=== PATIENT | female | born 1940 | race Caucasian/White ===

== ENCOUNTER → 2016-08-30 | Outpatient (CLI) | payer MEDICARE ==
[2016-07-25 19:00] VITALS: BP 141/59
[~2016-08-30] MED LIST: AMLO5TAB2 PO; ATOR20TA58 PO; BIMA2.5D EACHEYE; GABA600T2 PO; HYDR-2666 PO; HYDR12.58 PO; LISI-334 PO; LISI40TA PO; MAGN400T3 PO; MELO-150 PO; METF10002 PO; METO25TA4 PO; OMEP20CA9 PO; OXYB5TAB7 PO; POLY500P14 MC; SILV25CR4 TP; TRAM50TA PO
--- NOTE | 2016-08-30 15:22 | RAD ---
Right knee radiographs History: Right knee pain. Comparison: None. Findings: AP, lateral, and oblique views of the right knee. No acute fracture or dislocation is identified. No joint effusion is seen. Moderate-severe medial compartment degeneration is noted with partial loss of joint space, articular irregularity, and marginal osteophyte formation. Mild lateral compartment degeneration is seen with marginal osteophyte formation and preservation of joint space. Moderate patellofemoral compartment degeneration is seen marginal osteophyte formation. Small quadriceps tendon insertional enthesophyte is seen. Impression: 1. No acute osseous traumatic injury identified. 2. Degeneration.
--- NOTE | 2016-08-30 16:48 | RAD ---
Right lower extremity venous Doppler ultrasound History: Calf tenderness. Comparison: None. Procedure: Color Doppler, spectral Doppler, and grayscale images are obtained with and without compression in the area of the common femoral vein, superficial femoral vein - femoral vein junction, main femoral vein (superficial femoral vein) and popliteal vein. Veins of the proximal calf are also imaged. Findings: There is normal duplex flow, color flow and compressibility of all visualized vein segments. No evidence of deep venous thrombosis is present. Impression: No evidence of right lower extremity deep venous thrombosis.
== END | disposition home or self-care (01) ==
LOC: RAD 14:44
PROVIDERS: ATTEND Internal Medicine
DX: M25.561 Pain in right knee (principal); M79.604 Pain in right leg
CPT/HCPCS: 73562; 93971

== ENCOUNTER 2017-01-01 07:47 | Emergency (ER) | payer MEDICARE ==
[~2017-01-01] VITALS: Ht 157.5 cm; Wt 78.9 kg
[~2017-01-01 07:47] MED LIST changes: +METF-620 PO; -METF10002 PO
[2017-01-01 08:13] LABS: BASO # 0.1 x10^3/uL (0.0-0.2); BASO % 1 % (0-3); EOS % 2 % (0-3); HEMATOCRIT 36.9 % (36.0-47.0); HEMOGLOBIN 12.1 g/dL (12.0-15.5); LYMPH # 2.9 x10^3/uL (1.0-4.8); LYMPH % 25 % (24-48); MEAN CORPUSCULAR HEMOGLOBIN 29 pg (25-35); MEAN CORPUSCULAR HGB CONC 33 g/dL (31-37); MEAN CORPUSCULAR VOLUME 88 fL (79-100); MONO % 8 % (0-9); NEUT % 64 % (31-73); PLATELET COUNT 294 x10^3/uL (140-400); RED BLOOD COUNT 4.19 x10^6/uL (3.50-5.40); RED CELL DISTRIBUTION WIDTH 14.9 % (11.5-14.5); WHITE BLOOD COUNT 11.6 x10^3/uL (4.0-11.0)
[2017-01-01 08:19] LABS: CALCIUM 9.3 mg/dL (8.5-10.1); CREATININE 1.1 mg/dL (0.6-1.0); GFR 48.2; POTASSIUM 3.9 mmol/L (3.5-5.1)
[2017-01-01 08:21] LABS: INR 1.1 (0.8-1.1); PROTHROMBIN TIME PATIENT 13.4 SEC (11.7-14.0)
[2017-01-01 08:28] LABS: BILIRUBIN,URINE NEGATIVE (NEG); GLUCOSE,URINE NEGATIVE (NEG); NITRITE,URINE NEGATIVE (NEG); PH,URINE 5.5; PROTEIN,URINE NEGATIVE (NEG-TRACE); UROBILINOGEN,URINE 0.2 mg/dL (0.2 mg/dL)
[2017-01-01 08:30] LABS: ALBUMIN 3.7 g/dL (3.4-5.0); MAGNESIUM 1.3 mg/dL (1.8-2.4); TOTAL BILIRUBIN 0.7 mg/dL (0.2-1.0); TOTAL PROTEIN 7.5 g/dL (6.4-8.2)
--- NOTE | 2017-01-01 08:30 | RAD ---
Portable chest, 01/01/2017: History: Shortness of breath, fever Comparison is made to a study from 07/25/2016. The heart is at the upper limits of normal in size. There is calcific plaquing aorta. The pulmonary vascularity is normal. There is minimal parenchymal scarring. No acute infiltrates are seen. There is no evidence of pleural fluid. Surgical clips are projected over the right lower chest. A couple of tiny radiopaque foreign bodies projected over left upper chest are unchanged. Degenerative changes are evident in the spine. IMPRESSION: No acute cardiopulmonary abnormality is detected.
[2017-01-01 08:37] LABS: BACTERIA,URINE MANY /HPF (0-FEW); RBC,URINE FOBS /HPF (0-2); WBC,URINE TNTC /HPF (0-4)
[2017-01-01] MEDS ORDERED: fentaNYL PF VIAL 100 MCG/2 ML VIAL IV ONE (09:00)
[2017-01-01] MEDS ORDERED: IV NORMAL SALINE 1000ML BAG 1,000 ML IV ONE (09:00)
--- NOTE | 2017-01-01 09:34 | PHYS DOC ---
Past Medical History Past Medical History: Cancer, Diabetes-Type II, Hypertension, Other Additional Past Medical Histor: BREAST CANCER, URINARY URGENCY Past Surgical History: Hysterectomy, Other Additional Past Surgical Histo: RIGHT BREAST LUMPECTOMY Alcohol Use: None Drug Use: None Adult General Chief Complaint Chief Complaint: ABDOMINAL PAIN HPI HPI Patient is a 76 year old female who presents with lower abdominal pain, dysuria , and 1 episode of nausea and vomiting. Pt hasn't been feeling well for a couple of days. No known fevers, no change in bowels. pt reports last time she felt like this she had a kidney infection. Pt sees Dr. Vu. Review of Systems Review of Systems Constitutional: Denies fever or chills [] Eyes: Denies change in visual acuity, redness, or eye pain [] HENT: Denies nasal congestion or sore throat [] Respiratory: Denies cough Cardiovascular: No additional information not addressed in HPI [] GI: per hpi : per hpi Musculoskeletal: Denies back pain or joint pain [] Integument: Denies rash or skin lesions [] Neurologic: Denies headache, focal weakness or sensory changes [] Endocrine: Denies polyuria or polydipsia [] Current Medications Current Medications Current Medications Medications (Trade) Dose Ordered Sig/Maryam Start Time Stop Time Status Last Admin Dose Admin Ceftriaxone Sodium 50 ml @ 100 mls/hr 1X ONCE 01/01/17 09:00 01/01/17 09:29 DC 01/01/17 09:16 100 MLS/HR Fentanyl Citrate (Fentanyl 2ml Vial) 50 mcg 1X ONCE 01/01/17 09:00 01/01/17 09:01 DC 01/01/17 09:17 50 MCG Sodium Chloride 1,000 ml @ 1,000 mls/hr 1X ONCE 01/01/17 09:00 01/01/17 09:59 01/01/17 09:17 1,000 MLS/HR Allergies Allergies Allergies Coded Allergies Type Severity Reaction Last Updated Verified No Known Drug Allergies 09/10/13 No Physical Exam Physical Exam Constitutional: Well developed, well nourished, no acute distress, non-toxic appearance. [] HENT: Normocephalic, atraumatic, bilateral external ears normal, oropharynx moist, no oral exudates, nose normal. [] Eyes: PERRLA, EOMI, conjunctiva normal, no discharge. [] Neck: Normal range of motion, no tenderness, supple, no stridor. [] Cardiovascular:Heart rate tachy with regular rhythm, no murmur [] Lungs & Thorax: Bilateral breath sounds clear to auscultation , no wheeze or crackles Abdomen: Bowel sounds normal, soft, nondistended, Skin: Warm, dry, no erythema, no rash. [] Back: No tenderness, no CVA tenderness. [] Extremities: No tenderness, no cyanosis, no clubbing, ROM intact, no edema. [] Neurologic: Alert and oriented X 3, normal motor function, normal sensory function, no focal deficits noted. [] Psychologic: Affect normal, judgement normal, mood normal. [] Current Patient Data Vital Signs Vital Signs Date Time Temp Pulse Resp B/P (MAP) Pulse Ox O2 Delivery O2 Flow Rate FiO2 01/01/17 09:17 15 97 Room Air 01/01/17 07:56 98.2 133 163/72 (102) 98.2 Lab Values Laboratory Tests Test 01/01/17 07:55 01/01/17 08:05 01/01/17 08:15 White Blood Count 11.6 x10^3/uL (4.0-11.0) H Red Blood Count 4.19 x10^6/uL (3.50-5.40) Hemoglobin 12.1 g/dL (12.0-15.5) Hematocrit 36.9 % (36.0-47.0) Mean Corpuscular Volume 88 fL (79-100) Mean Corpuscular Hemoglobin 29 pg (25-35) Mean Corpuscular Hemoglobin Concent 33 g/dL (31-37) Red Cell Distribution Width 14.9 % (11.5-14.5) H Platelet Count 294 x10^3/uL (140-400) Neutrophils (%) (Auto) 64 % (31-73) Lymphocytes (%) (Auto) 25 % (24-48) Monocytes (%) (Auto) 8 % (0-9) Eosinophils (%) (Auto) 2 % (0-3) Basophils (%) (Auto) 1 % (0-3) Neutrophils # (Auto) 7.4 x10^3uL (1.8-7.7) Lymphocytes # (Auto) 2.9 x10^3/uL (1.0-4.8) Monocytes # (Auto) 0.9 x10^3/uL (0.0-1.1) Eosinophils # (Auto) 0.2 x10^3/uL (0.0-0.7) Basophils # (Auto) 0.1 x10^3/uL (0.0-0.2) Prothrombin Time 13.4 SEC (11.7-14.0) Prothrombin Time INR 1.1 (0.8-1.1) Sodium Level 142 mmol/L (136-145) Potassium Level 3.9 mmol/L (3.5-5.1) Chloride Level 103 mmol/L (98-107) Carbon Dioxide Level 23 mmol/L (21-32) Anion Gap 16 (6-14) H Blood Urea Nitrogen 14 mg/dL (7-20) Creatinine 1.1 mg/dL (0.6-1.0) H Estimated GFR (Cockcroft-Gault) 48.2 BUN/Creatinine Ratio 13 (6-20) Glucose Level 147 mg/dL (70-99) H Calcium Level 9.3 mg/dL (8.5-10.1) Magnesium Level 1.3 mg/dL (1.8-2.4) L Total Bilirubin 0.7 mg/dL (0.2-1.0) Aspartate Amino Transferase (AST) 16 U/L (15-37) Alanine Aminotransferase (ALT) 16 U/L (14-59) Alkaline Phosphatase 73 U/L (46-116) Troponin I Quantitative < 0.017 ng/mL (0.000-0.055) YV-Azl-E-Type Natriuretic Peptide 254 pg/mL (0-449) Total Protein 7.5 g/dL (6.4-8.2) Albumin 3.7 g/dL (3.4-5.0) Albumin/Globulin Ratio 1.0 (1.0-1.7) Lactic Acid Level 1.3 mmol/L (0.4-2.0) Urine Collection Type U cath Urine Color Yellow Urine Clarity Cloudy Urine pH 5.5 Urine Specific [place] 1.010 Urine Protein Negative mg/dL (NEG-TRACE) Urine Glucose (UA) Negative mg/dL (NEG) Urine Ketones (Stick) 15 mg/dL (NEG) Urine Blood Moderate (NEG) Urine Nitrite Negative (NEG) Urine Bilirubin Negative (NEG) Urine Urobilinogen Dipstick 0.2 mg/dL (0.2 mg/dL) Urine Leukocyte Esterase Large (NEG) Urine RBC Fobs /HPF (0-2) Urine WBC Tntc /HPF (0-4) Urine Bacteria Many /HPF (0-FEW) Laboratory Tests 01/01/17 07:55 Laboratory Tests 01/01/17 07:55 EKG EKG [] Radiology/Procedures Radiology/Procedures [] Course & Med Decision Making Course & Med Decision Making Pertinent Labs and Imaging studies reviewed. (See chart for details) given IV fluids and pain medication. Symptoms appear well-controlled, heart rate improved to 90. She does have a significant urinary tract infection, no clear signs of sepsis. I spoke with patient's PCP, after Horace, he agrees patient can be discharged home and follow up closely with him in clinic on Friday. Patient received 1 g IV Rocephin here in the ED, discharged with Levaquin 250 mg daily for [address] Vu's request. Zofran ODT also given. Return precautions given and patient voice understanding. Dragon Disclaimer Dragon Disclaimer This electronic medical record was generated, in whole or in part, using a voice recognition dictation system. Departure Departure Impression: Primary Impression: UTI (urinary tract infection) Disposition: 01 HOME, SELF-CARE Condition: IMPROVED Referrals: BEN VU MD (PCP) Scripts Levofloxacin (LEVOFLOXACIN) 500 Mg Tablet 1 TAB PO DAILY, #7 TAB Prov: RAVINDER CALLEJAS MD 01/01/17 Ondansetron (ZOFRAN ODT) 4 Mg Tab.rapdis 1 TAB SL Q8HRS Y for NAUSEA, #10 TAB Prov: RAVINDER CALLEJAS MD 01/01/17 RAVINDER CALLEJAS MD January 01, 2017 09:34
[2017-01-01] MEDS ORDERED: LEVO500T8 PO (09:43)
[2017-01-01] MEDS ORDERED: ONDA4TAB10 SL (09:43)
[2017-01-01 09:53] VITALS: BP 160/73
--- NOTE | 2017-01-01 15:13 | EKG ---
[facility] [address] [place] [address] Test Date: 2017-01-01 Test Time: 08:06:39 Pat Name: DARIO GUZMAN Department: Room: Gender: F Side Gluer: : 1940 Requested By: RAVINDER CALLEJAS Order Number: [id number] Reading MD: Sanjeev Tracy Measurements Intervals [place] Rate: 111 P: 180 [place]: 160 QRS: -6 QRSD: 82 T: 18 QT: 372 QTc: 510 Interpretive Statements SINUS RHYTHM NON-SPECIFIC ST/T CHANGES CANNOT RULE OUT INFERIOR INFARCT Electronically Signed On 01-06-2017 13:59:30 CDT by Sanjeev Tracy
== END 2017-01-01 10:13 | disposition home or self-care (01) ==
LOC: ER 07:47
DX: N39.0 Urinary tract infection, site not specified (principal); I10 Essential (primary) hypertension; E11.9 Type 2 diabetes mellitus without complications; Z90.710 Acquired absence of both cervix and uterus
CPT/HCPCS: 36415; 71010; 80053; 81001; 83605; 83735; 83880; 84484; 85027; 85610; 87086; 87186; 93005; 96365; 96375; 99285; J0690; J3010; J7030

== ENCOUNTER 2017-07-22 11:17 | Emergency (ER) | payer BC, MEDICARE ==
[~2017-07-22] VITALS: Ht 154.9 cm; Wt 78.9 kg
[~2017-07-22 11:17] MED LIST changes: -HYDR-2666 PO; +HYDR-2758 PO; +LEVO500T8 PO; -MELO-150 PO; +MELO15TA23 PO; +ONDA4TAB10 SL; -SILV25CR4 TP; +SILV25CR7 TP
[2017-07-22 11:20] VITALS: BP 166/71
--- NOTE | 2017-07-22 12:15 | PHYS DOC ---
Past Medical History Past Medical History: Cancer, Diabetes-Type II, Hypertension, Other Additional Past Medical Histor: BREAST CANCER, URINARY URGENCY Past Surgical History: Hysterectomy, Other Additional Past Surgical Histo: RIGHT BREAST LUMPECTOMY Alcohol Use: None Drug Use: None Adult General Chief Complaint Chief Complaint: COUGH HPI HPI Patient is a 76 year old female with a history of diabetes presents the ED complaining of cough 1.5 weeks. Patient states the cough is dry. States she is having trouble sleeping tonight because she has a cough. Associated symptoms include rhinorrhea and sore throat. States she has been using otc treatments with some improvement. Sick contacts at home with similar symptoms. Denies chest pain, shortness of breath, dizziness, weakness, nausea/vomiting, abdominal pain, syncope, lower leg swelling or headache. Review of Systems Review of Systems Constitutional: Denies fever or chills [] Eyes: Denies change in visual acuity, redness, or eye pain [] HENT: Complains of rhinorrhea and sore throat [] Respiratory: Complains of cough. Denies shortness of breath [] Cardiovascular: No additional information not addressed in HPI [] GI: Denies abdominal pain, nausea, vomiting, bloody stools or diarrhea [] : Denies dysuria or hematuria [] Musculoskeletal: Denies back pain or joint pain [] Integument: Denies rash or skin lesions [] Neurologic: Denies headache, focal weakness or sensory changes [] Endocrine: Denies polyuria or polydipsia [] All other systems were reviewed and found to be within normal limits, except as documented in this note. Allergies Allergies Allergies Coded Allergies Type Severity Reaction Last Updated Verified No Known Drug Allergies 09/10/13 No Physical Exam Physical Exam Constitutional: Well developed, well nourished, no acute distress, non-toxic appearance. [] HENT: Normocephalic, atraumatic, bilateral external ears normal, oropharynx moist, MILD PHARYNGEAL ERYTHEMA. no oral exudates, nose normal. [] Eyes: PERRLA, EOMI, conjunctiva normal, no discharge. [] Neck: Normal range of motion, no tenderness, supple, no stridor. [] Cardiovascular:Heart rate regular rhythm, no murmur [] Lungs & Thorax: Bilateral breath sounds clear to auscultation [] Abdomen: Bowel sounds normal, soft, no tenderness, no masses, no pulsatile masses. [] Skin: Warm, dry, no erythema, no rash. [] Back: No tenderness, no CVA tenderness. [] Extremities: No tenderness, no cyanosis, no clubbing, ROM intact, no edema. [] Neurologic: Alert and oriented X 3, normal motor function, normal sensory function, no focal deficits noted. [] Psychologic: Affect normal, judgement normal, mood normal. [] Current Patient Data Vital Signs Vital Signs Date Time Temp Pulse Resp B/P (MAP) Pulse Ox O2 Delivery O2 Flow Rate FiO2 07/22/17 13:26 52 18 98 Room Air 07/22/17 11:20 98.2 166/71 (102) 98.2 EKG EKG [] Radiology/Procedures Radiology/Procedures PROCEDURE: CHEST PA & LATERAL Indication: Pneumonia. Time of exam 12:19 PM Correlation is made with prior study from 01/01/2017. The heart is enlarged but stable. There appears to be mild right perihilar infiltrate present. Otherwise the lungs are clear. No effusion or pneumothorax is seen. Impression: Mild right perihilar pneumonia.[] Course & Med Decision Making Course & Med Decision Making Pertinent Labs and Imaging studies reviewed. (See chart for details) []Discussed imaging findings with patient. Patient's vital stable, no acute distress. Patient oxygen saturation is at 98%. States she does not want to get blood work or stay overnight in the hospital. States she will follow up with her PCP tomorrow. Will treat patient with azithromycin, Mucinex and Tessalon Perles outpatient. Discussed at home symptomatic treatment. Discussed the importance of follow-up with PCP in 1-2 days. Patient states she will make an appointment for tomorrow. Discussed reasons to return to the ED. Patient understands and agrees with plan. Family at bedside. Dragon Disclaimer Dragon Disclaimer This electronic medical record was generated, in whole or in part, using a voice recognition dictation system. Departure Departure Impression: Primary Impression: Pneumonia Disposition: 01 HOME, SELF-CARE Condition: STABLE Referrals: BEN ROSE MD (PCP) Patient Instructions: Pneumonia, Adult Scripts Guaifenesin (MUCINEX) 600 Mg Tablet.er 1 TAB PO BID, #14 TAB Prov: DEMETRI FISHER 07/22/17 Benzonatate (TESSALON PERLE) 100 Mg Capsule 1 CAP PO TID, #21 CAP Prov: DEMETRI FISHER 07/22/17 Azithromycin (AZITHROMYCIN TABLET) 250 Mg Tablet 1 PKG PO UD, #6 TAB Prov: DEMETRI FISHER 07/22/17 DEMETRI FISHER Jul 22, 2017 12:14
--- NOTE | 2017-07-22 12:58 | RAD ---
Indication: Pneumonia. Time of exam 12:19 PM Correlation is made with prior study from 01/01/2017. The heart is enlarged but stable. There appears to be mild right perihilar infiltrate present. Otherwise the lungs are clear. No effusion or pneumothorax is seen. Impression: Mild right perihilar pneumonia.
[2017-07-22] MEDS ORDERED: GUAI600T47 PO (13:26)
[2017-07-22] MEDS ORDERED: AZIT250T6 PO (13:26)
[2017-07-22] MEDS ORDERED: BENZ100C PO (13:26)
== END 2017-07-22 13:34 | disposition home or self-care (01) ==
LOC: ER 11:17
DX: J18.9 Pneumonia, unspecified organism (principal); E11.9 Type 2 diabetes mellitus without complications; I10 Essential (primary) hypertension
CPT/HCPCS: 71020; 99284

== ENCOUNTER → 2017-08-12 | Outpatient (CLI) | payer BC ==
[2017-07-22 11:20] VITALS: BP 166/71
[~2017-08-12] MED LIST changes: +AZIT250T6 PO; +BENZ100C PO; +GUAI600T47 PO
--- NOTE | 2017-08-12 17:33 | RAD ---
2 view CXR: Clinical indications: History of breast surgery. Follow-up of pneumonia. Comparison: July 22, 2017. Findings: Persistent mild right perihilar interstitial lung infiltrate is seen. There is an increase in peribronchial thickening or bronchitis bilaterally. No pleural effusion or pneumothorax is seen. The heart size and mediastinum and pulmonary vasculature and both dalila are stable. The osseous structures are intact. IMPRESSION: New development of acute bronchitis bilaterally. Stable mild interstitial infiltrate within the right midlung zone.
== END | disposition home or self-care (01) ==
LOC: RAD 16:27
PROVIDERS: ATTEND Internal Medicine
DX: J20.9 Acute bronchitis, unspecified (principal); J18.8 Other pneumonia, unspecified organism
CPT/HCPCS: 71020

== ENCOUNTER → 2017-09-10 | Outpatient (CLI) | payer BC ==
[~2017-09-10] MED LIST changes: -AMLO5TAB2 PO; -ATOR20TA58 PO; -AZIT250T6 PO; -BENZ100C PO; -BIMA2.5D EACHEYE; +CONTRAST GIVEN MC; -GABA600T2 PO; -GUAI600T47 PO; -HYDR-2758 PO; -HYDR12.58 PO; -LEVO500T8 PO; -LISI-334 PO; -LISI40TA PO; -MAGN400T3 PO; -MELO15TA23 PO; -METF-620 PO; -METO25TA4 PO; -OMEP20CA9 PO; -ONDA4TAB10 SL; -OXYB5TAB7 PO; -POLY500P14 MC; -SILV25CR7 TP; -TRAM50TA PO
[2017-09-10 12:17] LABS: GFR 53.6
[2017-09-10] MEDS: IOHEXOL 300 MG/ML 100ML VIAL. IV (13:17)
== END | disposition home or self-care (01) ==
LOC: CT 11:43
DX: R07.89 Other chest pain (principal); I71.00 Dissection of unspecified site of aorta; K44.9 Diaphragmatic hernia without obstruction or gangrene
CPT/HCPCS: 36415; 71275; 82565; Q9967

== ENCOUNTER 2018-01-02 14:59 | Emergency (ER) | payer BC ==
[2018-01-02] MEDS: MORPHINE SULFATE 4 MG/ML DISP.SYRIN. IV (15:45)
[2018-01-02] MEDS: LIDO:MAALOX 1:1 20 ML SINGLE DOSE. SWSW (15:45)
[2018-01-02 16:01] LABS: ADD MAN DIFF? NO
[2018-01-02 16:04] LABS: BASO % 1 % (0-3); EOS # 0.2 x10^3/uL (0.0-0.7); EOS % 2 % (0-3); HEMATOCRIT 39.7 % (36.0-47.0); HEMOGLOBIN 13.3 g/dL (12.0-15.5); LYMPH # 3.8 x10^3/uL (1.0-4.8); LYMPH % 39 % (24-48); MEAN CORPUSCULAR HEMOGLOBIN 29 pg (25-35); MEAN CORPUSCULAR HGB CONC 34 g/dL (31-37); MEAN CORPUSCULAR VOLUME 87 fL (79-100); MONO # 0.9 x10^3/uL (0.0-1.1); MONO % 10 % (0-9); NEUT # 4.8 x10^3uL (1.8-7.7); NEUT % 49 % (31-73); PLATELET COUNT 344 x10^3/uL (140-400); RED BLOOD COUNT 4.58 x10^6/uL (3.50-5.40); RED CELL DISTRIBUTION WIDTH 14.4 % (11.5-14.5); WHITE BLOOD COUNT 9.8 x10^3/uL (4.0-11.0)
[2018-01-02 16:05] LABS: BILIRUBIN,URINE NEGATIVE (NEG); CLARITY,URINE CLEAR; COLOR,URINE YELLOW; GLUCOSE,URINE NEGATIVE (NEG); NITRITE,URINE NEGATIVE (NEG); PH,URINE 6.5; PROTEIN,URINE NEGATIVE (NEG-TRACE); UROBILINOGEN,URINE 0.2 mg/dL (0.2 mg/dL)
[2018-01-02 16:15] LABS: ANION GAP 14 (6-14); BLOOD UREA NITROGEN 13 mg/dL (7-20); BUN/CREATININE RATIO 11 (6-20); CARBON DIOXIDE 26 mmol/L (21-32); CHLORIDE 96 mmol/L (98-107); CREATININE 1.2 mg/dL (0.6-1.0); GFR 43.4; GLUCOSE 170 mg/dL (70-99); POTASSIUM 3.4 mmol/L (3.5-5.1); SODIUM 136 mmol/L (136-145)
[2018-01-02 16:17] LABS: BACTERIA,URINE MODERATE /HPF (0-FEW); SQUAMOUS EPITHELIAL CELL,UR MANY /LPF; WBC,URINE 20-40 /HPF (0-4)
[2018-01-02 16:20] LABS: ALBUMIN 3.9 g/dL (3.4-5.0); ALK PHOS 74 U/L (46-116); ALT (SGPT) 19 U/L (14-59); AST (SGOT) 15 U/L (15-37); LIPASE 146 U/L (73-393); TOTAL BILIRUBIN 0.8 mg/dL (0.2-1.0)
[2018-01-02 16:23] LABS: TROPONINI < 0.017 ng/mL (0.000-0.055)
[2018-01-02] MEDS ORDERED: CONTRAST GIVEN MC (16:45)
[2018-01-02] MEDS: IV NORMAL SALINE 1000ML BAG 1,000 ML IV (17:00)
[2018-01-02] MEDS: IOHEXOL 300 MG/ML 100ML VIAL. IV (17:03)
== END 2018-01-02 19:19 | disposition home or self-care (01) ==
LOC: ER 14:59
DX: N39.0 Urinary tract infection, site not specified (principal); R11.0 Nausea; E11.9 Type 2 diabetes mellitus without complications; I10 Essential (primary) hypertension; E78.5 Hyperlipidemia, unspecified; Z90.710 Acquired absence of both cervix and uterus
CPT/HCPCS: 36415; 51702; 74177; 80053; 81001; 83690; 84484; 85025; 87086; 93005; 99285-25; J2270; J7030; Q9967

== ENCOUNTER 2018-01-06 18:45 | Emergency (ER) | payer BC | END 2018-01-06 22:09 | disposition home or self-care (01) | LOC: ER 22:09 | DX: T83.098A Other mechanical complication of other urinary catheter, initial encounter (principal); Y92.89 Other specified places as the place of occurrence of the external cause; E11.9 Type 2 diabetes mellitus without complications; I10 Essential (primary) hypertension; Z85.3 Personal history of malignant neoplasm of breast; Z87.440 Personal history of urinary (tract) infections | CPT/HCPCS: 99281 ==

== ENCOUNTER 2018-01-07 10:14 | Emergency (ER) | payer BC ==
[2018-01-07 10:42] LABS: ADD MAN DIFF? NO
[2018-01-07 10:52] LABS: ANION GAP 8 (6-14); BLOOD UREA NITROGEN 13 mg/dL (7-20); BUN/CREATININE RATIO 12 (6-20); CALCIUM 9.1 mg/dL (8.5-10.1); CARBON DIOXIDE 28 mmol/L (21-32); CHLORIDE 93 mmol/L (98-107); CREATININE 1.1 mg/dL (0.6-1.0); GLUCOSE 153 mg/dL (70-99); POTASSIUM 3.5 mmol/L (3.5-5.1); SODIUM 129 mmol/L (136-145)
[2018-01-07 10:58] LABS: ALBUMIN 3.9 g/dL (3.4-5.0); ALK PHOS 76 U/L (46-116); ALT (SGPT) 19 U/L (14-59); AST (SGOT) 15 U/L (15-37); TOTAL BILIRUBIN 0.8 mg/dL (0.2-1.0); TOTAL PROTEIN 7.9 g/dL (6.4-8.2)
[2018-01-07] MEDS: ONDANSETRON PF 4 MG/2 ML VIAL. IV (11:04)
[2018-01-07 11:14] LABS: BASO % 1 % (0-3); BILIRUBIN,URINE NEGATIVE (NEG); CLARITY,URINE CLEAR; COLOR,URINE YELLOW; EOS # 0.1 x10^3/uL (0.0-0.7); EOS % 1 % (0-3); GLUCOSE,URINE NEGATIVE (NEG); HEMATOCRIT 37.3 % (36.0-47.0); HEMOGLOBIN 12.9 g/dL (12.0-15.5); LYMPH # 2.2 x10^3/uL (1.0-4.8); LYMPH % 23 % (24-48); MEAN CORPUSCULAR HEMOGLOBIN 29 pg (25-35); MEAN CORPUSCULAR HGB CONC 35 g/dL (31-37); MEAN CORPUSCULAR VOLUME 85 fL (79-100); MONO # 0.8 x10^3/uL (0.0-1.1); MONO % 9 % (0-9); NEUT # 6.5 x10^3uL (1.8-7.7); NEUT % 67 % (31-73); NITRITE,URINE POSITIVE (NEG); PH,URINE 6.5; PLATELET COUNT 327 x10^3/uL (140-400); PROTEIN,URINE NEGATIVE (NEG-TRACE); RED BLOOD COUNT 4.39 x10^6/uL (3.50-5.40); RED CELL DISTRIBUTION WIDTH 13.9 % (11.5-14.5); UROBILINOGEN,URINE 0.2 mg/dL (0.2 mg/dL); WHITE BLOOD COUNT 9.7 x10^3/uL (4.0-11.0)
[2018-01-07 11:31] LABS: BACTERIA,URINE MANY /HPF (0-FEW); SQUAMOUS EPITHELIAL CELL,UR MOD /LPF; WBC,URINE >40 /HPF (0-4)
== END 2018-01-07 13:00 | disposition home or self-care (01) ==
LOC: ER 10:14
DX: N39.0 Urinary tract infection, site not specified (principal); R33.9 Retention of urine, unspecified
CPT/HCPCS: 36415; 51702; 80053; 81001; 85025; 87086; 96365; 96375; 99284-25; J0690; J2405

== ENCOUNTER 2018-01-10 13:20 | Emergency (ER) | payer BC ==
[2018-01-10] MEDS: TAMSULOSIN 0.4 MG CAP.ER.24H. PO (14:43)
== END 2018-01-10 15:45 | disposition home or self-care (01) ==
LOC: ER 15:45
DX: Z46.6 Encounter for fitting and adjustment of urinary device (principal); R33.9 Retention of urine, unspecified; E11.9 Type 2 diabetes mellitus without complications; I10 Essential (primary) hypertension
CPT/HCPCS: 99284

== ENCOUNTER → 2018-10-26 | Outpatient (CLI) | payer BC, MEDICARE ==
[2018-01-10 15:28] VITALS: BP 163/70
[~2018-10-26] MED LIST changes: +AMLO5TAB10 PO; +ATOR20TA58 PO; +AZIT250T6 PO; +BENZ100C PO; +BIMA2.5D EACHEYE; +CEPH500T PO; -CONTRAST GIVEN MC; +GABA600T7 PO; +GUAI600T47 PO; +HYDR-2761 PO; +HYDR12.58 PO; +LEVO500T8 PO; +LEVO750T31 PO; +LISI-130 PO; +LISI-334 PO; +MAGN400T3 PO; +MELO15TA23 PO; +METF10007 PO; +METO25TA4 PO; +OMEP20CA10 PO; +ONDA4TAB10 SL; +OXYB5TAB7 PO; +POLY500P14 MC; +SILV25CR7 TP; +TAMS0.4C97 PO; +TRAM50TA PO
--- NOTE | 2018-10-26 15:17 | RAD ---
Renal ultrasound dated 10/26/2018. No comparison available. Clinical data indication: Urinary retention. FINDINGS: Kidneys are somewhat echogenic. Right kidney measures 10.17 m in length. Left kidney measures 10.1 cm in length. No hydronephrosis. No apparent renal mass or shadowing calculus. Urinary bladder is mildly distended. No apparent wall thickening. Ureteral jets are not clearly identified. IMPRESSION: 1. Findings consistent with medical renal disease. No evidence hydronephrosis. 2. Mildly distended urinary bladder. Electronically signed by: Marques Myles MD (10/26/2018 3:14 PM) [id number]
== END | disposition home or self-care (01) ==
LOC: US 13:48
PROVIDERS: ATTEND Urology
DX: N32.89 Other specified disorders of bladder (principal); R33.8 Other retention of urine
CPT/HCPCS: 76770

== ENCOUNTER → 2019-10-08 | Outpatient (CLI) | payer BC ==
[2018-01-10 15:28] VITALS: BP 163/70
[~2019-10-08] MED LIST changes: -MAGN400T3 PO; +MAGN400T5 PO; -OMEP20CA10 PO; +OMEP20CA16 PO; +OXYB5TAB10 PO; -OXYB5TAB7 PO
--- NOTE | 2019-10-08 16:58 | CARD ---
MR#: [id number] Date of Study: 10/08/2019 Ordering Physician: KATHI MART, Referring Physician: KATHI MART Tech: Bulmaro Raza [facility] APPROVED REPORT EXAM: Two-dimensional and M-mode echocardiogram with Doppler and color Doppler. Other Information Quality : AverageHR: 90bpm Rhythm : Atrial Fibrillation INDICATION Murmur 2D DIMENSIONS Left Atrium(2D)4.4 (1.6-4.0cm)IVSd1.4 (0.7-1.1cm) Aortic Root(2D)3.2 (2.0-3.7cm)LVDd4.1 (3.9-5.9cm) PWd1.2 (0.7-1.1cm)LVDs2.6 (2.5-4.0cm) FS (%) 36.5 %SV48.1 ml Aortic Valve AoV Peak Carmelo.118.4cm/Jaqui Peak GR.5.6mmHg LVOT Peak Carmelo.77.1cm/s Pulmonary Valve PV Peak Rszyvipk975.7cm/s Tricuspid Valve TR P. [id number]/sRAP [id number] TR Peak Gr.[id number] LEFT VENTRICLE The left ventricle is normal size. There is mild concentric left ventricular hypertrophy. The left ve ntricular systolic function is normal and the ejection fraction is within normal range. The Ejection Fraction is 55-60%. There is normal LV segmental wall motion. Diastolic function is not assessed due to atrial fibrillation. RIGHT VENTRICLE The right ventricle is normal size. There is normal right ventricular wall thickness. The right ventr icular systolic function is normal. ATRIA The left atrium is mildly dilated. The right atrium is mildly dilated. The interatrial septum is inta ct with no evidence for an atrial septal defect or patent foramen ovale as noted on 2-D or Doppler im aging. AORTIC VALVE The aortic valve is normal in structure and function. No aortic regurgitation is present. There is no aortic valvular stenosis. There is no aortic valvular vegetation. MITRAL VALVE The mitral valve is normal in structure and function. Mild bi-leaflet prolapse. There is no mitral va lve stenosis. Doppler and Color-flow revealed mild mitral regurgitation. TRICUSPID VALVE The tricuspid valve is normal in structure and function. Mild tricuspid valve regurgitation noted wit h PAP of 33 mmHg. There is no tricuspid valve prolapse or vegetation. There is no tricuspid valve charlie nosis. PULMONIC VALVE The pulmonary valve is normal in structure and function. There is mild pulmonic valvular regurgitatio n. There is no pulmonic valvular stenosis. GREAT VESSELS The aortic root is normal in size. The ascending aorta is normal in size. The pulmonary artery is nor mal. The IVC is normal in size and collapses >50% with inspiration. PERICARDIAL EFFUSION There is no pleural effusion. The pericardium appears normal. Critical Notification Critical Value: No <Conclusion> The left ventricle is normal size. The left ventricular systolic function is normal and the ejection fraction is within normal range. The Ejection Fraction is 55-60%. There is mild concentric left ventricular hypertrophy. There is no aortic valvular stenosis. No aortic regurgitation is present. Doppler and Color-flow revealed mild mitral regurgitation. Mild tricuspid valve regurgitation noted with PAP of 33 mmHg. Signed by : Harley Olsen MD Electronically Approved : 10/08/2019 16:58:13
== END | disposition home or self-care (01) ==
LOC: ECHO 14:48
PROVIDERS: ATTEND Internal Medicine Cardiovascular Disease
DX: I08.8 Other rheumatic multiple valve diseases (principal); I48.91 Unspecified atrial fibrillation
CPT/HCPCS: 93306

== ENCOUNTER 2021-01-19 18:26 | Emergency (ER) | payer BC, MEDICARE ==
[~2021-01-19] VITALS: Ht 157.5 cm; Wt 67.3 kg
[~2021-01-19 18:26] MED LIST changes: +AMLO-186 PO; -AMLO5TAB10 PO; -LISI-334 PO; +LISI20TA18 PO
[2021-01-19] MEDS ORDERED: DIPH,PERTUSS(ACELL),TET VAC/PF 0.5 ML SYRINGE. VAX IM ONE (20:45)
[2021-01-19] MEDS ORDERED: LIDOCAINE 2%/EPI 1:100,000 20 ML VIAL. INJ ONE (20:45)
[2021-01-19] MEDS ORDERED: NEOMY/BACITR/POLYMYXIN OINT PACKET. TP ONE (20:45)
--- NOTE | 2021-01-19 21:24 | RAD ---
STUDY: CT head and cervical spine without contrast INDICATION: Fall. Trauma to the head. COMPARISON: None. TECHNIQUE: Axial CT imaging through the head and cervical spine without the use of intravenous contra st. Sagittal and coronal reformats were obtained. One or more of the following individualized dose reduction techniques were utilized for this examinat ion: 1. Automated exposure control 2. Adjustment of the mA and/or kV according to patient size 3. Use of iterative reconstruction technique. FINDINGS: CT head: No acute intracranial hemorrhage. [place]-white matter differentiation is maintained. No localized mass effect, midline shift or hydrocephalus. Intracranial calcific atherosclerosis. Parenchymal volume is within normal limits for patient age. Contusive injury above the left orbit. No depressed calvarial fracture. No hemorrhage seen within the visualized paranasal sinuses. Normally aerated mastoid air cells. Calvarial hyperostosis. Dural calc ifications. CT cervical spine: No acute fracture or traumatic malalignment. Multilevel spondylosis with severe neural foraminal stenosis on the right at C5-C6. Estimated mild an d moderate central canal narrowing without a definitive severe stenosis. No paraspinous hematoma. Carotid calcific atherosclerosis. Unremarkable thyroid. No apical pneumothor ax. IMPRESSION: CT head: 1. No acute intracranial abnormality by CT. 2. Contusive injury above the left orbit. No depressed calvarial fracture. CT cervical spine: 1. No acute fracture or traumatic malalignment. 2. Multilevel spondylosis without evidence for severe central canal narrowing. The greatest degree o f neural foraminal stenosis is on the right at C5-C6. Electronically signed by: HORTENCIA DICKINSON MD (01/19/2021 9:22 PM) [facility]
[2021-01-19 21:38] VITALS: BP 151/80
--- NOTE | 2021-01-19 23:01 | ED.ADGEN ---
Past Medical History Past Medical History: Cancer, Diabetes-Type II, Hypertension, UTI, Other Additional Past Medical Histor: BREAST CANCER, URINARY URGENCY Past Surgical History: Hysterectomy, Other Additional Past Surgical Histo: RIGHT BREAST LUMPECTOMY Smoking Status: Former Smoker Alcohol Use: None Drug Use: None General Adult EDM: Chief Complaint: LACERATION/AVULSION HPI: HPI: Patient is a 80 year old female, who presents emergency department with complaints of a laceration above her left eye, and bilateral knee pain with abrasions after a trip and fall today. Patient states she was walking outside of [facility] when she tripped and fell flat on her face. States incident happened at approximately 1300 this afternoon, she denies any loss of consciousness, neck, back, or upper extremity pain. Patient denies any nausea, vomiting, abdominal pain, chest pain, dizziness, headache, palpitations, or syncope. She reports her last tetanus shot was less than 5 years ago. Patient currently rates her pain a 5 out of 10 on the pain scale, she denies any alleviating factors, the pain is worse if the areas are touched. Patient states when she went home she washed the laceration and both knee abrasions with soap and water and applied antibiotic ointment and bandages to all of the areas. Review of Systems: Review of Systems: Complete ROS is negative unless otherwise noted in HPI. Current Medications: Current Medications Medications (Trade) Dose Ordered Sig/Maryam Start Time Stop Time Status Last Admin Dose Admin Diphtheria/ Tetanus/Acell Pertussis (ADACEL TDap SYRINGE) 0.5 ml ONCE ONCE 01/19/21 20:45 01/19/21 20:46 DC 01/19/21 20:40 0.5 ML Lidocaine/ Epinephrine (LIDOCAINE 2%-EPI 1:100,000 multi-dose) 20 ml 1X ONCE 01/19/21 20:45 01/19/21 20:46 DC 01/19/21 20:39 20 ML Neomycin/ Polymyxin/ Bacitracin (Triple Antibiotic Ointment) 1 pkt 1X ONCE 01/19/21 20:45 01/19/21 20:46 DC 01/19/21 20:39 1 PKT Allergies: Allergies: Allergies Coded Allergies Type Severity Reaction Last Updated Verified No Known Drug Allergies 09/10/13 No Physical Exam: PE: See Above Constitutional: Well developed, well nourished, no acute distress, non-toxic appearance. [] HENT: Normocephalic, bilateral external ears normal, nose normal, oropharynx moist. [] Eyes: PERRLA, EOMI, conjunctiva normal, no discharge. [] Neck: Normal range of motion, supple, nontender, no stridor. [] Cardiovascular:Heart rate regular rhythm Lungs & Thorax: Respirations even and unlabored, no retractions, no respiratory distress Abdomen: soft, no tenderness Skin: Warm, dry, no erythema, no rash; 3 cm laceration above the left eyebrow, no visible foreign body, no active bleeding; superficial abrasions to bilateral anterior knees, no active bleeding, no visible foreign bodies.. [] Extremities: Left knee: Anterior tenderness to palpation without crepitus or obvious deformity, 1+ edema, no cyanosis, ROM intact, sensation intact, Right knee: Anterior tenderness to palpation without crepitus or obvious deformity, 1+ edema, no cyanosis, ROM intact, sensation intact, Neurologic: Alert and oriented X 3, normal sensory, normal motor, no focal deficits noted. [] Psychologic: Affect normal, judgement normal, mood normal. [] Current Patient Data: Vital Signs: Vital Signs Date Time Temp Pulse Resp B/P (MAP) Pulse Ox O2 Delivery O2 Flow Rate FiO2 01/19/21 21:38 77 151/80 (103) Room Air 01/19/21 20:48 99 01/19/21 19:35 98.2 13 98.2 EKG: EKG: [] Heart Score: C/O Chest Pain: No Risk Scores: Score 0 - 3: 2.5% MACE over next 6 weeks - Discharge Home Score 4 - 6: 20.3% MACE over next 6 weeks - Admit for Clinical Observation Score 7 - 10: 72.7% MACE over next 6 weeks - Early Invasive Strategies Radiology/Procedures: Radiology/Procedures: PROCEDURE: CT HEAD AND CERVICAL SPINE WO STUDY: CT head and cervical spine without contrast INDICATION: Fall. Trauma to the head. COMPARISON: None. TECHNIQUE: Axial CT imaging through the head and cervical spine without the use of intravenous contrast. Sagittal and coronal reformats were obtained. One or more of the following individualized dose reduction techniques were utilized for this examination: 1. Automated exposure control 2. Adjustment of the mA and/or kV according to patient size 3. Use of iterative reconstruction technique. FINDINGS: CT head: No acute intracranial hemorrhage. [place]-white matter differentiation is maintained. No localized mass effect, midline shift or hydrocephalus. Intracranial calcific atherosclerosis. Parenchymal volume is within normal limits for patient age. Contusive injury above the left orbit. No depressed calvarial fracture. No hemorrhage seen within the visualized paranasal sinuses. Normally aerated mastoid air cells. Calvarial hyperostosis. Dural calcifications. CT cervical spine: No acute fracture or traumatic malalignment. Multilevel spondylosis with severe neural foraminal stenosis on the right at C5- C6. Estimated mild and moderate central canal narrowing without a definitive severe stenosis. No paraspinous hematoma. Carotid calcific atherosclerosis. Unremarkable thyroid. No apical pneumothorax. IMPRESSION: CT head: 1. No acute intracranial abnormality by CT. 2. Contusive injury above the left orbit. No depressed calvarial fracture. CT cervical spine: 1. No acute fracture or traumatic malalignment. 2. Multilevel spondylosis without evidence for severe central canal narrowing. The greatest degree of neural foraminal stenosis is on the right at C5-C6. Electronically signed by: HORTENCIA DICKINSON MD (01/19/2021 9:22 PM) [facility] [place] Laceration Repair by ak: Anesthesia: 2% lidocaine with epi Location: Above left eyebrow Tendon/Joint/Nerves: No injury Foreign body: None detected after copious irrigation and exploration with NS and chlorhexidine Technique: 7 simple Interrupted Sutures with 6-0 Prolene Complexity: No subcutaneous sutures/mucosal repair/edge excision Post Closure Length: 3 cm Patient's bleeding was easily controlled in the department and there is no indication of anemia. No evidence of compartment syndrome, neurologic injury, vascular injury, open j oint, tendon laceration, or foreign body. Patient is appropriate for outpatient follow up. [] Course & Med Decision Making: Course & Med Decision Making Pertinent Labs and Imaging studies reviewed. (See chart for details) [] Dragon Disclaimer: Dragon Disclaimer: This electronic medical record was generated, in whole or in part, using a voice recognition dictation system. Departure Departure Impression: Primary Impression: Bilateral knee pain Additional Impressions: Abrasion of knee, bilateral Fall Closed head injury without loss of consciousness Facial laceration Disposition: 01 HOME / SELF CARE / HOMELESS Condition: STABLE Referrals: BEN ROSE MD (PCP) Patient Instructions: Abrasion, [id number], Facial Laceration, [id number], Head Injury, Adult, [id number], Knee Pain, [id number] Additional Instructions: Fill the prescription and take it as directed. Tylenol or ibuprofen as needed for pain. Follow the head injury precautions provided. Keep the area clean and dry. You may take Tylenol or ibuprofen as needed for pain. Cleanse the sutured and abraded areas twice a day with soap and water and apply antibiotic ointment to the abrasions. Follow-up with your primary care doctor, or return to the emergency room in 5-7 days to have the sutures removed, sooner if you develop signs of infection including: redness, warmth, drainage, or a fever. Scripts Cephalexin (CEPHALEXIN) 500 Mg Capsule 1 CAP PO TID for 7 Days, #21 CAP 0 Refills Prov: SANDRA RAMOS APRN 01/19/21 Attending Signature Attending Signature I have reviewed the PA/TAKE OFF MAN's note and plan of care. I was available for consultation as needed during the patient's visit in the emergency department. I agree with the clinical impression, plan, and disposition. Problem Qualifiers Primary Impression: Bilateral knee pain Chronicity: acute Qualified Codes: M25.561 - Pain in right knee; M25.562 - Pain in left knee Additional Impressions: Fall Encounter type: initial encounter Qualified Codes: W19.XXXA - Unspecified fall, initial encounter Closed head injury without loss of consciousness Encounter type: initial encounter Qualified Codes: S09.90XA - Unspecified injury of head, initial encounter Facial laceration Encounter type: initial encounter Qualified Codes: S01.81XA - Laceration without foreign body of other part of head, initial encounter SANDRA RAMOS APRN Jan 19, 2021 23:01 BEN LACEY DO Jan 20, 2021 04:20
[2021-01-19] MEDS ORDERED: CEPH500C PO (23:23)
--- NOTE | 2021-01-19 23:37 | RAD ---
EXAM: AP, lateral and oblique views of bilateral knees DATE: 01/19/2021 9:14 PM CLINICAL INDICATION: Reason: bilateral knee pain after fall / Spl. Instructions: / History: COMPARISON: None. FINDINGS: Negative for acute or subacute fracture. Severe medial compartment joint space narrowing bilaterally . Negative retained radiopaque foreign body. Joint body at the posterior lateral joint line. No knee joint effusion. IMPRESSION: No acute fracture or dislocation. Severe knee joint osteoarthritis bilaterally. Electronically signed by: Lencho Green MD (01/19/2021 11:35 PM) TANIA
== END 2021-01-19 23:42 | disposition home or self-care (01) ==
LOC: ER 18:26
DX: S01.81XA Laceration without foreign body of other part of head, initial encounter (principal); S80.212A Abrasion, left knee, initial encounter; S80.211A Abrasion, right knee, initial encounter; E11.9 Type 2 diabetes mellitus without complications; I10 Essential (primary) hypertension; Z87.440 Personal history of urinary (tract) infections; W01.0XXA Fall on same level from slipping, tripping and stumbling without subsequent striking against object, initial encounter; Y93.01 Activity, walking, marching and hiking; Y92.89 Other specified places as the place of occurrence of the external cause; Y99.8 Other external cause status
CPT/HCPCS: 12013; 70450; 72125; 73562; 90471; 90715; 99285; J3490

== ENCOUNTER 2021-01-25 09:20 | Emergency (ER) | payer MEDICARE ==
[~2021-01-25] VITALS: Ht 160 cm; Wt 68.1 kg
[~2021-01-25 09:20] MED LIST changes: +CEPH500C PO
[2021-01-25 09:57] VITALS: BP 153/74
--- NOTE | 2021-01-25 10:04 | PHYS DOC ---
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 7 sutures were placed. She is here today to have them removed. She denies any pain, purulent drainage, redness, fevers. (YAMILETH EWING DOCKING PILOT) Review of Systems: Review of Systems: Constitutional: Denies fever or chills. [] Eyes: Denies change in visual acuity. [] HENT: Denies nasal congestion or sore throat. [] Respiratory: Denies cough or shortness of breath. [] Cardiovascular: Denies chest pain or edema. [] GI: Denies abdominal pain, nausea, vomiting, bloody stools or diarrhea. [] : Denies dysuria. [] Musculoskeletal: Denies back pain or joint pain. [] Integument: Denies rash. +Left forehead sutures in place [] Neurologic: Denies headache, focal weakness or sensory changes. [] Endocrine: Denies polyuria or polydipsia. [] Lymphatic: Denies swollen glands. [] Psychiatric: Denies depression or anxiety. [] (YAMILETH EWING DOCKING PILOT) Heart Score: C/O Chest Pain: No Risk Factors: Risk Factors: DM, Current or recent (<one month) smoker, HTN, HLP, family history of CAD, obesity. Risk Scores: Score 0 - 3: 2.5% MACE over next 6 weeks - Discharge Home Score 4 - 6: 20.3% MACE over next 6 weeks - Admit for Clinical Observation Score 7 - 10: 72.7% MACE over next 6 weeks - Early Invasive Strategies (YAMILETH EWING D[employer]ING PILOT) Allergies: Allergies: Allergies Coded Allergies Type Severity Reaction Last Updated Verified No Known Drug Allergies 09/10/13 No (YAMILETH EWING APRN) Physical Exam: PE: Constitutional: Well developed, well nourished, no acute distress, non-toxic appearance. [] HENT: Normocephalic, atraumatic, bilateral external ears normal, oropharynx mois t, no oral exudates, nose normal. [] Eyes: PERRLA, EOMI, conjunctiva normal, no discharge. [] Neck: Normal range of motion, no tenderness, supple, no stridor. [] Cardiovascular:Heart rate regular rhythm, no murmur [] Lungs & Thorax: Bilateral breath sounds clear to auscultation [] Abdomen: Bowel sounds normal, soft, no tenderness, no masses, no pulsatile masses. [] Skin: Warm, dry, no erythema, no rash. Well healed laceration with sutures in place to left forehead above the brow. [] Back: No tenderness, no CVA tenderness. [] Extremities: No tenderness, no cyanosis, no clubbing, ROM intact, no edema. [] Neurologic: Alert and oriented X 3, normal motor function, normal sensory function, no focal deficits noted. [] Psychologic: Affect normal, judgement normal, mood normal. [] (YAMILETH EWING APRN) EKG: EKG: [] (YAMILETH EWING APRN) Radiology/Procedures: Radiology/Procedures: [] (YAMILETH EWING APRN) Course & Med Decision Making: Course & Med Decision Making Pertinent Labs and Imaging studies reviewed. (See chart for details) See HPI. Edges are healed together with some scabbing. 7 sutures are removed. No signs of infection, redness, or drainage. No tenderness. Patient tolerated well. Alert and Oriented x4. Speaks in full complete sentences. [] (YAMILETH EWING APRN) Dragon Disclaimer: Dragon Disclaimer: This electronic medical record was generated, in whole or in part, using a voice recognition dictation system. (YAMILETH EWING APRN) Departure Departure Impression: Primary Impression: Visit for suture removal Disposition: HOME / SELF CARE / HOMELESS Condition: STABLE Referrals: BEN ROSE MD (PCP) Patient Instructions: Suture Removal Additional Instructions: Follow-up with primary care provider as needed. Place Neosporin over the area. Continue to watch for any signs of infection. Attending Signature Attending Signature I have reviewed the PA/MASTER PLUMBER's note and plan of care. I was available for consultation as needed during the patient's visit in the emergency department. I agree with the clinical impression, plan, and disposition. (BEN LACEY DO) YAMILETH EWING APRN Jan 25, 2021 10:04 BEN LACEY DO Jan 26, 2021 14:34
== END 2021-01-25 10:29 | disposition home or self-care (01) ==
LOC: ER 09:20
DX: S01.112D Laceration without foreign body of left eyelid and periocular area, subsequent encounter (principal); E11.9 Type 2 diabetes mellitus without complications; I10 Essential (primary) hypertension; Z87.891 Personal history of nicotine dependence; W18.39XD Other fall on same level, subsequent encounter
CPT/HCPCS: 99281